=== PATIENT | male | born 1955 | race Caucasian/White ===

== ENCOUNTER 2017-01-24 06:11 | Emergency (ER) | payer OTHER ==
--- NOTE | 2017-01-24 08:09 | RAD ---
Exam: Three-view left ankle COMPARISON: None INDICATION: Crush injury to left ankle. FINDINGS: AP, lateral and oblique views of the left ankle were obtained. Pronounced soft tissue swelling is seen about the ankle although there is no significant joint effusion. There is minimal irregularity along the distal aspect of the fibula which is of uncertain chronicity given lack of comparisons. Bones are otherwise unremarkable. Ankle mortise intact. IMPRESSION: Diffuse soft tissue swelling about the ankle although no significant joint effusion is identified. Minor irregularity along the distal aspect of the fibula which is of uncertain chronicity given lack of comparisons. Remote trauma is favored over a nondisplaced fracture although this cannot be excluded given the history. Note additional concern for fracture is identified. Ankle mortise intact.
[2017-01-24] MEDS ORDERED: MORPHINE SULFATE 4 MG/ML SYRINGE ONE (08:10)
== END 2017-01-24 08:48 | disposition home or self-care (01) ==
LOC: ED 06:11
DX: S99.912A Unspecified injury of left ankle, initial encounter (principal); F17.210 Nicotine dependence, cigarettes, uncomplicated; V27.3XXA Person boarding or alighting a motorcycle injured in collision with fixed or stationary object, initial encounter; Y92.89 Other specified places as the place of occurrence of the external cause
CPT/HCPCS: 73610; 99283 ×2; 29515; 96372; J2270